=== PATIENT | female | born 1950 | race Caucasian/White ===

== ENCOUNTER 2024-07-02 11:22 | Emergency (ER) | payer OTHER, MEDICARE ==
[~2024-07-02] VITALS: Ht 162.6 cm; Wt 82.0 kg
[2024-07-02] MEDS ORDERED: OXYCODONE HCL5 MG PO (13:54)
[2024-07-02] MEDS ORDERED: OXYCODONE HCL 5 MG TAB PO ONE (14:00)
[2024-07-02] MEDS ORDERED: HYDROCODONE/ACETA 5/325 TAB PO ONE (14:15)
[2024-07-02] MEDS ORDERED: HYDROCODONE BIT/ACETAMINOPHEN 5/325 MG 1 TAB HOME.PACK PO ONE (14:15)
[2024-07-02] MEDS ORDERED: METOPROLOL TART25 MG PO (14:23)
[2024-07-02] MEDS ORDERED: OMEPRAZOLE20 MG PO (14:24)
[2024-07-02] MEDS ORDERED: LISINOPRIL20 MG PO (14:24)
[2024-07-02] MEDS ORDERED: ASPIRIN REGIMEN81 MG PO (14:25)
[2024-07-02 14:35] VITALS: BP 160/57
== END 2024-07-02 14:35 | disposition home or self-care (01) ==
LOC: ED 11:22
DX: S16.1XXA Strain of muscle, fascia and tendon at neck level, initial encounter (principal); S29.012A Strain of muscle and tendon of back wall of thorax, initial encounter; M19.90 Unspecified osteoarthritis, unspecified site; W18.30XA Fall on same level, unspecified, initial encounter; Z88.0 Allergy status to penicillin; Z88.5 Allergy status to narcotic agent
CPT/HCPCS: 72040; 72070; 72074; 99283; A9270